=== PATIENT | male | born 1985 | race Two or more races ===

== ENCOUNTER 2018-02-19 14:50 | Emergency (ER) | payer MEDICAID ==
[2018-02-19] MEDS ORDERED: ACETAMINOPHEN 325 MG TAB PO ONE (15:23)
--- NOTE | 2018-02-19 16:24 | EDPHY ---
H & P Time Seen by Provider: 02/19/18 15:19 HPI/ROS: This patient inverted his left ankle 2 nights ago with lateral pain and swelling since that time 5/10 intensity at baseline that worsens with attempts to bear weight. He explains that he was listening to music in his headphones and was distracted when he stepped partially off of a curb on the sidewalk causing the injury. He did not fall to the ground. He was able to catch himself but did injuries ankle as described above. Yesterday he worked full day on his feet at [employer] and has increased pain since that time. No other exacerbating factors except partial relief from Tylenol-last dose 9:00 a.m.. He reports having had ankle sprains will in high school basketball years ago but no injury since then until now. ROS: Neuro: No numbness or tingling Musculoskeletal: No other injuries. Cardiovascular: No discoloration to the affected extremity integumentary: No skin rash 5 point ROS is otherwise negative Smoking Status: Current every day smoker Physical Exam: Physical Exam Vital signs are normal. General: No acute distress HEENT: Atraumatic. Eyes: Pupils equal and react to light. Extraocular motions are intact. Lungs: No respiratory distress. Cardiac: Brisk capillary refill is intact throughout. Pulses are 2+ and symmetric in the affected extremity. Skin: No rash or pallor. Extremities: Atraumatic normal except for left ankle exam Left ankle: Positive moderate lateral swelling and tenderness anterior and inferior to the lateral malleolus. Anterior drawer is negative for laxity. No 5th metatarsal tenderness. No Achilles tenderness or medial ankle swelling or tenderness. Neuro: Alert with no sensorimotor deficits in the affected lower extremity. Initial differential diagnosis: Ankle sprain, ankle fracture, traumatic hematoma Constitutional: Initial Vital Signs Temperature (C) 36.9 C 02/19/18 15:08 Heart Rate 88 02/19/18 15:08 Respiratory Rate 16 02/19/18 15:08 Blood Pressure 113/78 02/19/18 15:08 O2 Sat (%) 95 02/19/18 15:08 O2 Delivery Mode Room Air Allergies/Adverse Reactions: ibuprofen [Ibuprofen] Allergy (Severe, Verified 02/19/18 15:11) Hives Home Medications: Medication Instructions Recorded No Medications [No Known] 12/06/12 MDM/Departure - MDM Diagnostics: [facility] Ankle x-ray: No fractures by my interpretation., positive lateral ankle swelling-moderate. Medications Given: Discontinued Medications Acetaminophen (Tylenol) 975 mg PO EDNOW ONE Stop: 02/19/18 15:24 Last Admin: 02/19/18 15:49 Dose: 975 mg Counseled this patient regarding ankle sprain. I demonstrated ankle rehab exercises and gentle stretches. Splinting: Patient is placed in a Velcro stirrup splint by our tech with my supervision. He is neurovascularly intact post splint application. Discussion: Grade 1 or 2 ankle sprain without evidence of neurovascular compromise or other complications. The patient has crutches at home. We counseled regarding crutch use. - Depart Disposition: Home, Routine, Self-Care Clinical Impression: Ankle sprain Qualifiers: Encounter type: initial encounter Involved ligament of ankle: anterior talofibular ligament Laterality: left Qualified Code(s): S93.492A - Sprain of other ligament of left ankle, initial encounter Condition: Good Instructions: Ankle Sprain (ED), Crutch Instructions (ED) Additional Instructions: Diagnosis: Left ankle sprain Plan: Ice 20 minutes at a time 3 times a day or more for the next few days. Stirrup splint whenever you're up and about until your symptoms resolve. Tylenol in addition if needed for pain. Use crutches initially until it no longer hurts to bear weight. Then start your ankle rehabilitation exercises to include "the alphabet", gentle ankle stretches in the 4 directions, and then manual resistance strengthening exercises in the 4 directions daily for the next several months. Call the orthopedic M.D. listed below to arrange a followup appointment if you' re not improving with the treatment plan over the next week or so. Stand Alone Forms: Work Excuse Referrals: NONE *PRIMARY CARE P,. [Primary Care Provider] - As per Instructions Osmani Rangel MD [Medical Doctor] - As per Instructions
[2018-02-19 16:32] VITALS: BP 115/70
== END 2018-02-19 16:37 | disposition home or self-care (01) ==
LOC: CED 14:50
DX: S93.492A Sprain of other ligament of left ankle, initial encounter (principal); F17.200 Nicotine dependence, unspecified, uncomplicated; X58.XXXA Exposure to other specified factors, initial encounter; Y92.480 Sidewalk as the place of occurrence of the external cause
CPT/HCPCS: 73610-PO; L4350

== ENCOUNTER 2018-04-02 16:09 | Emergency (ER) | payer MEDICAID ==
--- NOTE | 2018-04-02 17:42 | EDPHY ---
H & P Stated Complaint: L upper arm redness, pain, purulent drainage x 2 days. 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 It has been progressively worsening. He has noted some purulent drainage. He has not had fever and does not otherwise feel ill. REVIEW OF SYSTEMS: A ten point review of systems was performed and is negative with the exception of the items mentioned in the HPI. Past medical history: IVDA Social history: He works at [employer]. He smokes cigarettes. He is . No illicit drugs. General Appearance: Alert. Vital signs reviewed. Blood pressure 142/80 at triage. Afebrile. Eyes: Pupils equal and round, no conjunctival injection, no discharge. Anicteric. ENT, Mouth: Mucous membranes are moist, no oropharyngeal erythema or edema. Neck: No lymphadenopathy. Respiratory: Lungs are clear to auscultation; no wheezes, rales, or rhonchi. Cardiovascular: Regular rate and rhythm; no murmur, rub, or gallop. Gastrointestinal: Abdomen is soft and nontender, no masses or organomegaly, bowel sounds normal. Skin: Fluctuance left upper arm with purulent drainage and surrounding cellulitis. Extremities: Full active range of motion of his left shoulder elbow wrist and fingers. Pulses: 2+ left radial pulse. Neurological: Alert and oriented. Moving all four extremities easily and equally. Normal strength in left upper extremity. Normal sensation left upper extremity. Psychiatric: Normal affect. - Personal History Current Tetanus Diphtheria and Acellular Pertussis (TDAP): Yes Tetanus Vaccine Date: 2012 - Medical/Surgical History Hx Asthma: No Hx Chronic Respiratory Disease: No Hx Diabetes: No Hx Cardiac Disease: No Hx Renal Disease: No Hx Cirrhosis: No Hx Alcoholism: No Hx HIV/AIDS: No Hx Splenectomy or Spleen Trauma: No Other PMH: former heroin user, ortho surgery arm - Social History Smoking Status: Current every day smoker Constitutional: Initial Vital Signs Temperature (C) 36.6 C 04/02/18 16:12 Heart Rate 88 04/02/18 16:12 Respiratory Rate 16 04/02/18 16:12 Blood Pressure 142/80 H 06/02/18 16:12 O2 Sat (%) 95 04/02/18 16:12 O2 Delivery Mode Room Air Allergies/Adverse Reactions: ibuprofen [Ibuprofen] Allergy (Verified 04/02/18 16:22) Pt reports Hives Home Medications: Medication Instructions Recorded No Medications [No Known] 12/06/12 Amoxicillin/Clavulanate Pot 875 mg PO BID #13 tab 04/02/18 [Augmentin 875 MG TAB (*)] Doxycycline Hyclate [Doxycycline] 100 mg PO BID #13 cap 04/02/18 Medical Decision Making Procedures: Incision and drainage of left upper arm abscess that measures approximately 3 cm x 5 cm. The procedure was explained to the patient, including the risks and benefits. Verbal consent was given. Overlying skin was anesthetized using 1% lidocaine with epinephrine. The wound was cleaned and incised with a 11. Blade. Copious amount of purulent drainage was obtained. A culture was sent. Septations were broken up and the wound was irrigated. Antibiotic packing was placed in the wound was dressed. Procedure was tolerated well by the patient. ED Course/Re-evaluation: Left upper arm abscess with surrounding cellulitis in former IVDA on methadone. Incision and drainage performed. The wound was packed. I spoke with Dr. Rose hdz of Infectious Disease. She recommends Augmentin and doxycycline. He will follow up here, as [facility] is unable to schedule an appointment for a minute timely fashion. He is referred [facility] for primary care. Wound care follow-up instructions reviewed with the patient. He is given prescriptions for Augmentin and doxycycline, with his 1st dose here. Danger signs reviewed with him. Differential Diagnosis: I considered a differential diagnosis that includes but is not limited to abscess, cellulitis, necrotizing fasciitis, retained foreign body. Departure - Departure Disposition: Home, Routine, Self-Care Clinical Impression: Abscess Condition: Good Instructions: Abscess (ED) Additional Instructions: There is packing inside the area that was drained. This packing needs to be removed in 2-3 days. You should return here to have that done. You can come at the time of day that is convenient for you. We will remove the packing and check the wound. I am prescribing 2 antibiotics for you--both of them are taken twice daily. You will have a 7 day prescription. You should take them exactly as prescribed. I am referring [facility] to [facility]. Please call them on Wednesday to establish care with them. If you have trouble getting an appointment with them you can call us and we can arrange to have our professor of social work/medical case worker help you with this. [facility] is unable to schedule an appointment for you right now so it is important that you establish care with a primary care provider. Referrals: [facility] [[facility]] - As per Instructions Prescriptions: Amoxicillin/Clavulanate Pot [Augmentin 875 MG TAB (*)] 875 mg PO BID #13 tab Doxycycline Hyclate [Doxycycline] 100 mg PO BID #13 cap
[2018-04-02] MEDS ORDERED: DOXYCYCLINE HYCLATE 100 MG CAP/TAB PO ONE (17:47)
[2018-04-02] MEDS ORDERED: AMOXICILLIN/CLAVULANATE POT 875/125 MG TAB PO ONE (17:47)
[2018-04-02 18:14] VITALS: BP 114/66
== END 2018-04-02 18:13 | disposition home or self-care (01) ==
LOC: CED 16:09
PROC: 0H9CXZZ Drainage of Left Upper Arm Skin, External Approach (ICD-10-PCS; principal; 2018-04-02)
DX: L02.414 Cutaneous abscess of left upper limb (principal); F17.200 Nicotine dependence, unspecified, uncomplicated